=== PATIENT | female | born 1955 | race Caucasian/White ===

== ENCOUNTER → 2022-05-07 11:26 | Outpatient (BNVA) | payer MEDICARE, OTHER, SELFPAY | PROVIDERS: PCP Family Medicine; Visit Provider Family Medicine | DX: N94.12 Deep dyspareunia (principal); R32 Unspecified urinary incontinence | CPT/HCPCS: 87070; 87205 ==

== ENCOUNTER → 2022-08-31 11:23 | Outpatient (BNVA) | payer MEDICARE, OTHER, SELFPAY | PROVIDERS: PCP Family Medicine; Visit Provider Family Medicine | DX: I10 Essential (primary) hypertension (principal); R53.83 Other fatigue; E66.9 Obesity, unspecified | CPT/HCPCS: 80053; 80061; 82043; 84443; 85025 ==

== ENCOUNTER → 2023-03-28 12:19 | Outpatient (BNVA) | payer MEDICARE, OTHER, SELFPAY | PROVIDERS: PCP Family Medicine; Visit Provider Family Medicine | DX: R53.83 Other fatigue (principal); E66.9 Obesity, unspecified; I10 Essential (primary) hypertension | CPT/HCPCS: 80053; 84443; 85025 ==

== ENCOUNTER → 2023-09-27 11:15 | Outpatient (BNVA) | payer MEDICARE, OTHER, SELFPAY | PROVIDERS: PCP Family Medicine; Visit Provider Family Medicine | DX: I10 Essential (primary) hypertension (principal) | CPT/HCPCS: 80053; 80061; 82043; 85025 ==

== ENCOUNTER 2023-11-06 14:57 | Outpatient (CLI) | payer MEDICARE, OTHER, SELFPAY ==
--- NOTE | 2023-11-06 15:07 | MM_ITS ---
WS: [id number] BILATERAL 3D TOMOSYNTHESIS DIGITAL SCREENING MAMMOGRAPHY WITH CAD CLINICAL INFORMATION: screening HISTORY: Screening mammogram. No current complaints. COMPARISON: 2020 TECHNIQUE: Bilateral CC and MLO views. FINDINGS: Scattered fibroglandular densities bilaterally. No suspicious focal mass, asymmetry, calcifications, or architectural distortion. No evidence of malignancy. A few incidental punctate calcifications. IMPRESSION: MM/[place] [id number] BI-RADS: 2-Benign FOLLOW UP: 1 Year Follow-up Recommend return to annual screening mammography.
== END 2023-11-06 14:58 | disposition home or self-care (01) ==
LOC: RAD 14:58
PROVIDERS: PCP Family Medicine; Visit Provider Family Medicine
DX: Z12.31 Encounter for screening mammogram for malignant neoplasm of breast (principal)
CPT/HCPCS: 77063; 77067

== ENCOUNTER → 2025-06-03 09:43 | Outpatient (BNVA) | payer MEDICARE, OTHER, SELFPAY | PROVIDERS: PCP Family Medicine; Visit Provider Family Medicine | DX: I10 Essential (primary) hypertension (principal); R35.0 Frequency of micturition; R31.29 Other microscopic hematuria | CPT/HCPCS: 80053; 80061; 81000; 81003; 84443; 85025 ==

== ENCOUNTER 2025-06-04 09:06 | Outpatient (CLI) | payer MEDICARE, OTHER, SELFPAY ==
--- NOTE | 2025-06-04 09:20 | MM_ITS ---
WS: [id number] BILATERAL 3D TOMOSYNTHESIS DIGITAL SCREENING MAMMOGRAPHY WITH CAD CLINICAL INFORMATION: screening HISTORY: Screening mammogram. No current complaints. COMPARISON: 2022 TECHNIQUE: Bilateral CC and MLO views. FINDINGS: Scattered fibroglandular densities bilaterally. No suspicious focal mass, asymmetry, calcifications, or architectural distortion. No evidence of malignancy. MM/MM scr BI tomosynthesis [id number] IMPRESSION: DENSITY: There are scattered areas of fibroglandular density. BI-RADS: 1 - Negative. FOLLOW UP: 1 Year Follow-up Recommend return to annual screening mammography.
== END 2025-06-04 09:07 | disposition home or self-care (01) ==
LOC: RAD 09:07
PROVIDERS: PCP Family Medicine; Visit Provider Family Medicine
DX: Z12.31 Encounter for screening mammogram for malignant neoplasm of breast (principal); R92.323 Mammographic fibroglandular density, bilateral breasts
CPT/HCPCS: 77063; 77067